=== PATIENT | female | born 1970 | race Caucasian/White ===

== ENCOUNTER 2018-07-29 16:23 | Emergency (ER) | payer OTHER ==
[~2018-07-29] VITALS: Ht 172.7 cm; Wt 67.8 kg
[2018-07-29 16:27] VITALS: BP 153/81; Ht 172.7 cm; Wt 67.8 kg
[2018-07-29] MEDS ORDERED: ALBUTEROL 0.5% (NEB) 2.5 MG/0.5 ML AMP INH STA ×2 (16:43→16:52)
[2018-07-29] MEDS ORDERED: DEXAMETHASONE 10 MG/ML 1 ML INJ IM STA ×2 (16:43→16:52)
[2018-07-29] MEDS ORDERED: IPRATROPIUM (NEB) 0.5 MG/2.5 ML AMP INH STA ×2 (16:43→16:52)
[2018-07-29] MEDS ORDERED: PRED20TA PO (18:04)
[2018-07-29] MEDS ORDERED: ATRO INH (18:04)
[2018-07-29] MEDS ORDERED: ALBU2.5V3 NEB (18:04)
[2018-07-29] MEDS ORDERED: AZIT250T PO (18:04)
--- NOTE | 2018-07-29 18:11 | ERD ---
ER Documentation Chief Complaint Chief Complaint COUGH WITH YELLOW PHLEGM , SOB X 4 DAYS HPI Patient is 48-year-old female possible history of COPD presents to the ED with complaints of shortness of breath and cough for the past 4 days. Patient states she has numerous flareups of her COPD which she was last treated for 6 weeks ago. She used to be a 1 pack-a-day smoker but quit 1 year ago. She states she started to feel short of breath again 4 days ago which has since been getting progressively worse. Cough has now progressed from a dry to wet cough with yellow sputum. She has been using her inhaler without much relief. She denies any chest pain, wheezing, fevers, chills, nausea, vomiting or any other symptoms. Patient was recently given a referral to a see a automotive fuel injection servicer at [facility] but has not yet scheduled an appointment. S ROS All systems reviewed and are negative except as per history of present illness. Medications Home Meds Active Scripts Prednisone* (Prednisone*) 20 Mg Tab, 40 MG PO DAILY for 4 Days, TAB Prov:LEODAN MIDDLETON-C 07/29/18 Azithromycin* (Zithromax*) 250 Mg Tablet, 250 MG PO .ZPACK DIRECTED, #6 TAB TAKE 500 MG (2 TABS) THE FIRST DAY THEN 250 MG (1 TAB) DAYS 2-5 Prov:LEODAN MIDDLETON-C 07/29/18 Ipratropium [place]* (Atrovent HFA*) 12.9 Gm Aer.w.adap, 2 PUFF INH Q6 PRN for SHORTNESS OF BREATH, #1 EA Prov:LEODAN MIDDLETON-C 07/29/18 Albuterol Sulfate* (Albuterol Sulfate* Neb) 0.083%-3 Ml Neb, 2.5 MG NEB Q4 PRN for SHORTNESS OF BREATH, #30 EA Prov:LEODAN MIDDLETON-C 07/29/18 Allergies Allergies: Coded Allergies: No Known Allergy (Unverified , 07/29/18) PMhx/Soc Medical and Surgical Hx: pt denies Surgical Hx Hx Respiratory Disorders: Yes (COPD) Hx Alcohol Use: No Hx Substance Use: No Hx Tobacco Use: Yes (quit x 1 yr ago) Smoking Status: Former smoker FmHx Family History: No diabetes Physical Exam Vitals Vital Signs Date Temp Pulse Resp B/P (MAP) Pulse Ox O2 O2 Flow FiO2 Time Delivery Rate 07/29/18 105 20 91 18:33 07/29/18 2.0 17:17 07/29/18 75 20 97 Nasal 2.0 17:16 Cannula 07/29/18 Nasal 17:14 Cannula 07/29/18 98.5 98 20 153/81 94 16:27 (105) Physical Exam Const: + Appears in mild respiratory distress, O2 sat of 94% Head: Atraumatic Eyes: Normal Conjunctiva ENT: Normal External Ears, Nose and Mouth. Neck: Full range of motion. No meningismus. Resp: + Mildly tachypneic, + Course breath sounds throughout, + Rhonchi Cardio: Regular rate and rhythm, no murmurs Abd: Soft, non tender, non distended. Normal bowel sounds Skin: No petechiae or rashes Back: No midline or flank tenderness Ext: No cyanosis, or edema Neur: Awake and alert Psych: Normal Mood and Affect Results 24 hrs Current Medications Medications Dose Sig/Tracy Start Time Status Last (Trade) Ordered Route PRN Stop Time Admin Dose Reason Admin 10 mg ONCE STAT 07/29/18 DC 07/29/18 Dexamethasone IM 16:43 17:11 (Decadron) 07/29/18 16:52 Albuterol 10 mg ONCE STAT 07/29/18 DC 07/29/18 (Proventil INH 16:43 17:15 0.5% (Neb)) 07/29/18 16:52 Ipratropium 1 mg ONCE STAT 07/29/18 DC 07/29/18 Milo INH 16:43 17:14 (Atrovent 07/29/18 16:52 0.02% (Neb)) Albuterol 10 mg ONCE STAT 07/29/18 DC (Proventil INH 16:52 0.5% (Neb)) 07/29/18 17:54 Ipratropium 1 mg ONCE STAT 07/29/18 DC Milo INH 16:52 (Atrovent 07/29/18 17:54 0.02% (Neb)) 10 mg ONCE STAT 07/29/18 DC Dexamethasone IM 16:52 (Decadron) 07/29/18 17:54 Procedures/MDM EMERGENT LABS AND DIAGNOSTIC STUDIES: Radiology Results as interpreted by Radiology: PROCEDURE: XR Chest. CLINICAL INDICATION: Difficulty breathing TECHNIQUE: PA and Lateral views of the chest were obtained. COMPARISON: None. FINDINGS: Atherosclerotic changes are seen in the aortic arch. The cardiac silhouette is unremarkable. The lungs are clear. No signs of pleural fluid or pneumothorax are seen. There are healing fractures involving the posterior lateral left third, fourth and fifth ribs. IMPRESSION: 1. Healing fractures are seen involving the posterior lateral left third, fourth and fifth ribs. 2. Otherwise, no significant cardiopulmonary abnormalities are identified. RPTAT:AAJJ Physician Michela Date Time Electronically viewed and signed by Fan Hull Physician on 07/29/2018 17:21 Nursing Notes Reviewed. Previous Medical Records requested via the Electronic Health Record. EMERGENCY DEPARTMENT COURSE / MEDICAL DECISION MAKING: Patient is a 48 year old most nicotine use with history of COPD who presents to the ED with increasing dyspnea and cough. She was placed on O2, given Decadron and started on a continuous breathing treatment of albuterol and atrovent. Lung sounds improved, patient felt much better and wanted to go home. CXR was negative for pneumonia, PTX or pleural effusion. Patient's history and exam are most consistent with acute exacerbation of her COPD. She was discharged home with a prescription for abuterol and atrovent inhalers, prednisone and as well as Azithromycin for prophylactic coverage. Patient's respiratory status has st abilized while in the department and is appropriate for outpatient work up.Exam and work up not consistent w/ impending respiratory failure or cardiovascular collapse. She was told to follow up with her PCP in 2 days and schedule an appointment with a automotive fuel injection servicer for further management of her care. Strict return precautions given. DISPOSITION PLAN: We discussed follow up with the patient's primary care doctor within 24 to 48 hours. A list of [facility] clinics have been referred to those who have not yet established care with a PCP. Patient counseled regarding my diagnostic impression and care plan. Prior to discharge all questions answered. Pt agrees with treatment plan and understands strict return precautions. Precautionary instructions provided including instructions to return to the ER if not improving or for any worsening or changing symptoms or concerns. Prior to discharge, patients vital signs have been reviewed. Patient's blood pressure was elevated (>120/80) but appears stable without evidence of hypertension emergency or urgency. The patient was counseled about the risks of hypertension and urged to pursue outpatient monitoring and therapy within a week with their primary care physician . SPECIALIST FOLLOW UP RECOMMENDED: None Patient has been advised to follow up with primary care in 1-2 days. Departure Diagnosis: Primary Impression: COPD without exacerbation Additional Impression: Acute bronchitis Condition: Stable Patient Instructions: Treatments for COPD, Copd Flare Referrals: [facility] YOU HAVE RECEIVED A MEDICAL SCREENING EXAM AND THE RESULTS INDICATE THAT YOU DO NOT HAVE A CONDITION THAT REQUIRES URGENT TREATMENT IN THE EMERGENCY DEPARTMENT. FURTHER EVALUATION AND TREATMENT OF YOUR CONDITION CAN WAIT UNTIL YOU ARE SEEN IN YOUR DOCTORS OFFICE WITHIN THE NEXT 1-2 DAYS. IT IS YOUR RESPONSIBILITY TO M FRANNIE AN APPOINTMENT FOR FOLOW-UP CARE. IF YOU HAVE A PRIMARY DOCTOR --you should call your primary doctor and schedule an appointment IF YOU DO NOT HAVE A PRIMARY DOCTOR YOU CAN CALL OUR PHYSICIAN REFERRAL HOTLINE AT IF YOU CAN NOT AFFORD TO SEE A PHYSICIAN YOU CAN CHOSE FROM THE FOLLOWING [facility] [address] [facility]. [facility] [address] [facility] [address] [facility]. [facility] [address] [facility]. [facility] [address] [facility]. [facility]. [address] Additional Instructions: Please make an appointment to see a automotive fuel injection servicer at [facility]. You have been given a refill of your inhalers, a short course of steroids as well as an antibiotic. You are likely having a flare of your COPD. Return to the ED for any new or worsening symptoms. LEODAN MIDDLETON PA-C Jul 29, 2018 18:11
[2018-07-29 18:33] VITALS: PULSE 105; RESP 20
== END 2018-07-29 18:34 | disposition home or self-care (01) ==
LOC: FTE 16:23
DX: J44.1 Chronic obstructive pulmonary disease with (acute) exacerbation (principal); J20.9 Acute bronchitis, unspecified; Z87.891 Personal history of nicotine dependence
CPT/HCPCS: 71046; 94644; 96372; J1100; Z7502; Z7610

== ENCOUNTER 2018-11-17 19:24 | Emergency (ER) | payer OTHER ==
[~2018-11-17] VITALS: Ht 172.7 cm; Wt 66.8 kg
[~2018-11-17 19:24] MED LIST: ALBU2.5V3 NEB; ATRO INH; AZIT250T PO; PRED20TA PO
[2018-11-17 19:35] VITALS: Ht 172.7 cm; Wt 66.8 kg
[2018-11-17] MEDS ORDERED: ALBUTEROL 0.083% (NEB) 2.5 MG/3 ML AMP HHN STA ×2 (19:58→20:52)
[2018-11-17] MEDS ORDERED: IPRATROPIUM (NEB) 0.5 MG/2.5 ML AMP HHN ONE ×2 (20:00→21:00)
[2018-11-17] MEDS ORDERED: DEXAMETHASONE 10 MG/ML 1 ML INJ IM ONE (20:00)
[2018-11-17] MEDS ORDERED: ALBU2.5V3 NEB (21:15)
[2018-11-17] MEDS ORDERED: PRED20TA PO (21:15)
[2018-11-17] MEDS ORDERED: AZIT250T PO (21:15)
--- NOTE | 2018-11-17 21:18 | ERD ---
ER Documentation Chief Complaint Chief Complaint SOB, HX OF COPD HPI 48-year-old female presents with a history of COPD. She has been wheezing for the last week. She recently completed a course of prednisone. She is using a nebulizer at home. She is an occasional smoker. ROS All systems reviewed and are negative except as per history of present illness. Medications Home Meds Active Scripts Azithromycin* (Zithromax*) 250 Mg Tablet, 250 MG PO .ZPACK DIRECTED, #6 TAB TAKE 500 MG (2 TABS) THE FIRST DAY THEN 250 MG (1 TAB) DAYS 2-5 Prov:YESENIA QUEVEDO MD 11/17/18 Albuterol Sulfate* (Albuterol Sulfate* Neb) 0.083%-3 Ml Neb, 2.5 MG NEB Q4 PRN for SHORTNESS OF BREATH, #30 EA Prov:YESENIA QUEVEDO MD 11/17/18 Prednisone* (Prednisone*) 20 Mg Tab, 40 MG PO DAILY for 8 Days, #12 TAB 40 mg a day by mouth for 4 days then 20 mg by mouth for 4 days. Prov:YESENIA QUEVEDO MD 11/17/18 Prednisone* (Prednisone*) 20 Mg Tab, 40 MG PO DAILY for 4 Days, TAB Prov:LEODAN MIDDLETON-C 07/29/18 Azithromycin* (Zithromax*) 250 Mg Tablet, 250 MG PO .ZPACK DIRECTED, #6 TAB TAKE 500 MG (2 TABS) THE FIRST DAY THEN 250 MG (1 TAB) DAYS 2-5 Prov:KAROLYNIGRLEODAN HOLLIS PA-C 07/29/18 Ipratropium [place]* (Atrovent HFA*) 12.9 Gm Aer.w.adap, 2 PUFF INH Q6 PRN for SHORTNESS OF BREATH, #1 EA Prov:KAROLYNIGRIKIANLEODAN PA-C 07/29/18 Albuterol Sulfate* (Albuterol Sulfate* Neb) 0.083%-3 Ml Neb, 2.5 MG NEB Q4 PRN for SHORTNESS OF BREATH, #30 EA Prov:KAROLYNIGRIKIMISAEL ALLISONPYUR N PA-C 07/29/18 Allergies Allergies: Coded Allergies: No Known Allergy (Unverified , 07/29/18) PMhx/Soc Medical and Surgical Hx: pt denies Surgical Hx Hx Respiratory Disorders: Yes (COPD) Hx Alcohol Use: No Hx Substance Use: No Hx Tobacco Use: Yes (quit x 1 yr ago) Smoking Status: Current every day smoker FmHx Family History: No diabetes, No coronary disease, No other Physical Exam Vitals Vital Signs Date Temp Pulse Resp B/P (MAP) Pulse Ox O2 O2 Flow FiO2 Time Delivery Rate 11/17/18 93 20 96 21 20:19 11/17/18 98.3 95 20 121/69 96 19:35 (86) Physical Exam Const: No acute distress Head: Atraumatic Eyes: Normal Conjunctiva ENT: Normal External Ears, Nose and Mouth.. TMs normal. Neck: Full range of motion. No meningismus. Resp: Clear to auscultation bilaterally coarse breath sounds with wheezing and rhonchi. No rales or retractions appreciated. Cardio: Regular rate and rhythm, no murmurs Abd: Soft, non tender, non distended. Normal bowel sounds Skin: No petechiae or rashes Back: No midline or flank tenderness Ext: No cyanosis, or edema Neur: Awake and alert Psych: Normal Mood and Affect Results 24 hrs Current Medications Medications Dose Sig/Tracy Start Time Status Last (Trade) Ordered Route PRN Stop Time Admin Dose Reason Admin 10 mg ONCE ONCE 11/17/18 DC 11/17/18 Dexamethasone IM 20:00 11/17/18 20:07 (Decadron) 20:01 Albuterol 5 mg ONCE STAT 11/17/18 DC 11/17/18 (Proventil HHN 19:58 11/17/18 20:18 0.083% (Neb)) 20:00 Ipratropium 0.5 mg ONCE ONCE 11/17/18 DC 11/17/18 [place] HHN 20:00 11/17/18 20:18 (Atrovent 20:01 0.02% (Neb)) Albuterol 10 mg ONCE STAT 11/17/18 DC 11/17/18 (Proventil HHN 20:52 11/17/18 21:10 0.083% (Neb)) 20:53 Ipratropium 1 mg ONCE ONCE 11/17/18 DC 11/17/18 [place] HHN 21:00 11/17/18 21:10 (Atrovent 21:01 0.02% (Neb)) Procedures/MDM Patient given Decadron 10 mg IM and albuterol and Atrovent treatment. Patient had persistent coarse breath sounds and wheezing without hypoxemia but was given a additional 10 mg albuterol and 1 mg Atrovent. Patient had no evidence of hypoxemia, rest or distress. She had mild residual coarse breath sounds without retractions, significant wheeze or rales. Patient presents with signs and symptoms of asthma or COPD exacerbation without hypoxemia, Departure Diagnosis: Primary Impression: COPD without exacerbation Condition: Stable Patient Instructions: Bronchitis With Wheezing (Adult), Copd Flare Referrals: JIAN AMARO MD (PCP) Additional Instructions: Recheck for new worsening symptoms with primary care doctor. YESENIA QUEVEDO MD Nov 17, 2018 21:18
[2018-11-17 21:35] VITALS: BP 129/61; PULSE 83; RESP 18
== END 2018-11-17 21:35 | disposition home or self-care (01) ==
LOC: FTE 19:24
DX: J44.1 Chronic obstructive pulmonary disease with (acute) exacerbation (principal); F17.210 Nicotine dependence, cigarettes, uncomplicated
CPT/HCPCS: 94644; 94664; 96372; J1100; Z7502; Z7610